=== PATIENT | female | born 1980 | race Caucasian/White ===

== ENCOUNTER → 2024-03-19 11:04 | Outpatient (BNVA) | payer SELFPAY | PROVIDERS: PCP Nurse Practitioner; Visit Provider Nurse Practitioner Family | DX: R53.83 Other fatigue (principal) | CPT/HCPCS: 87400; 87426 ==

== ENCOUNTER → 2024-08-08 11:21 | Outpatient (BNVA) | payer OTHER, SELFPAY | PROVIDERS: PCP Nurse Practitioner; Visit Provider Clinical Nurse Specialist Adult Health | DX: J45.20 Mild intermittent asthma, uncomplicated (principal); K21.9 Gastro-esophageal reflux disease without esophagitis; E66.01 Morbid (severe) obesity due to excess calories | CPT/HCPCS: 80053; 80061; 84443; 85025 ==

== ENCOUNTER → 2024-09-03 10:47 | Outpatient (BNVA) | payer OTHER, SELFPAY | PROVIDERS: PCP Clinical Nurse Specialist Adult Health; Visit Provider Clinical Nurse Specialist Adult Health | DX: J20.8 Acute bronchitis due to other specified organisms (principal) | CPT/HCPCS: 87400; 87426 ==

== ENCOUNTER → 2025-02-02 12:23 | Outpatient (BNVA) | payer OTHER, SELFPAY | PROVIDERS: PCP Clinical Nurse Specialist Adult Health; Visit Provider Clinical Nurse Specialist Adult Health | DX: M25.812 Other specified joint disorders, left shoulder (principal) | CPT/HCPCS: 73030 ==

== ENCOUNTER 2025-02-12 09:35 | Outpatient (CLI) | payer OTHER, SELFPAY ==
--- NOTE | 2025-02-12 09:30 | MR_ITS ---
WS: [id number] MRI LEFT SHOULDER NONCONTRAST TECHNIQUE: Sagittal T2, coronal T1, T2 and proton density imaging. Axial gradient PDE imaging. CLINICAL INFORMATION: M75.42 - Impingement syndrome of left shoulder COMPARISON: None. FINDINGS: Mild to moderate arthritis AC joint with a small amount of fluid and edema. Mild downsloping acromion. Slight impingement on the supraspinatus. Supraspinatus and infraspinatus appear intact. No high-grade tears. Normal teres minor. Subscapularis tendon appears intact. Biceps tendon appears intact within the bicipital groove. Intra-articular biceps tendon appears intact. Normal biceps labral anchor. Normal bone marrow signal in the humerus and glenoid. No visualized fractures. MR/MR shoulder LT wo con* [id number] IMPRESSION: 1. Mild to moderate degenerative arthritis AC joint with a small amount of flu id and edema. Mild downsloping acromion with slight impingement on the supraspi natus. 2. Normal rotator cuff. No high-grade tears. 3. Biceps tendon appears intact within the bicipital groove. Intra-articular b iceps tendon appears intact. 4. No other acute findings.
== END 2025-02-12 09:36 | disposition home or self-care (01) ==
LOC: RAD 09:38
PROVIDERS: PCP Clinical Nurse Specialist Adult Health; Visit Provider Clinical Nurse Specialist Adult Health
DX: M75.42 Impingement syndrome of left shoulder (principal); M19.012 Primary osteoarthritis, left shoulder
CPT/HCPCS: 73221

== ENCOUNTER 2025-02-20 05:00 | Outpatient (RCR) | payer OTHER, SELFPAY | END 2025-03-22 23:59 | disposition home or self-care (01) | LOC: APT 05:00 | PROVIDERS: PCP Clinical Nurse Specialist Adult Health; Visit Provider Clinical Nurse Specialist Adult Health | DX: M75.42 Impingement syndrome of left shoulder (principal) | CPT/HCPCS: 97110; 97161; 97530 ==

== ENCOUNTER 2025-03-23 05:00 | Outpatient (RCR) | payer OTHER, SELFPAY | END 2025-04-21 23:59 | disposition home or self-care (01) | LOC: APT 05:00 | PROVIDERS: PCP Clinical Nurse Specialist Adult Health; Visit Provider Clinical Nurse Specialist Adult Health | DX: M75.42 Impingement syndrome of left shoulder (principal) | CPT/HCPCS: 97110; 97530 ==

== ENCOUNTER → 2025-04-23 11:43 | Outpatient (BNVA) | payer OTHER, SELFPAY | PROVIDERS: PCP Clinical Nurse Specialist Adult Health; Visit Provider Nurse Practitioner | DX: J02.9 Acute pharyngitis, unspecified (principal) | CPT/HCPCS: 87071; 87880 ==